=== PATIENT | male | born 1985 | race Caucasian/White ===

== ENCOUNTER 2017-04-10 09:59 | Day surgery (SDC) | payer OTHER ==
[2017-04-10 10:32] VITALS: BMI 25.8
[2017-04-10] MEDS ORDERED: Propofol 10 mg/ml Inj (20 ML) ONE (11:10)
[2017-04-10] MEDS ORDERED: Lidocaine Hydrochloride 5 ML INJ ONE (11:10)
--- NOTE | 2017-04-10 11:12 | CP.SDSHP ---
Same Day Surgery H & P - History Proposed Procedure: egd Pre-Op Diagnosis: dyspepsia - Allergies Allergies: Allergies No Known Allergies Allergy (Verified 02/23/17 22:07) - Physical Exam General Appearance: nl Vital Signs: Vital Signs 04/10/17 10:37 Temperature 97.5 F L Pulse Rate 72 Respiratory 16 Rate Blood Pressure 111/80 O2 Sat by Pulse 98 Oximetry Mental Status: Alert & Oriented x3 Neuro: WNL Heart: WNL Lungs: WNL GI: WNL - {Optional Preform as Required} Abdomen: WNL - Impression Impression: dyspepsia. egd Pt. Evaluated Today:Candidate for Anesthesia & Procedure: Yes - Date & Time Date: 04/10/17 Time: 11:11 Short Stay Discharge - Short Stay Discharge Admitting Diagnosis/Reason for Visit: DYSPEPSIA Disposition: HOME/ ROUTINE
[2017-04-10 11:15] VITALS: O2SAT 100
[2017-04-10] MEDS ORDERED: Lactated Ringer's 500 ML IV SCH (11:15)
[2017-04-10 12:18] VITALS: TEMP 98.5
[2017-04-10 12:59] VITALS: BP 121/82; PULSE 74; RESP 15
== END 2017-04-10 12:50 | disposition home or self-care (01) ==
LOC: C.ENDO 09:59
PROVIDERS: ATTEND Internal Medicine
DX: K29.70 Gastritis, unspecified, without bleeding (principal); R10.13 Epigastric pain
CPT/HCPCS: 43239; 88305; J2704; J7120